=== PATIENT | female | born 1975 | race Asian ===

== ENCOUNTER 2024-04-20 07:00 | Day surgery (SDC) | payer MEDICAID, OTHER ==
[~2024-04-20] VITALS: Ht 160 cm; Wt 60.3 kg
[2024-04-20] MEDS ORDERED: fentaNYL CITRATE/PF 100 MCG/2 ML AMP ONE (07:24)
[2024-04-20] MEDS ORDERED: MIDAZOLAM HCL 5 MG/5 ML VIAL ONE (07:24)
[2024-04-20] MEDS ORDERED: SIMETHICONE 40 MG/0.6 ML ML ONE (07:24)
[2024-04-20 07:46] LABS: HCG,QUAL RESULT NEGATIVE (NEGATIVE)
[2024-04-20 12:51] VITALS: BP_SYST 163; PULSE 72; RESP 16; TEMP 98.2; O2SAT 100
== END 2024-04-20 09:35 | disposition home or self-care (01) ==
LOC: SDS 07:00 → SMU 07:05 → SDS 09:35
PROVIDERS: ATTEND Internal Medicine
DX: R10.13 Epigastric pain (principal); K29.50 Unspecified chronic gastritis without bleeding; K44.9 Diaphragmatic hernia without obstruction or gangrene; K21.9 Gastro-esophageal reflux disease without esophagitis; Z98.890 Other specified postprocedural states; Z79.899 Other long term (current) drug therapy
CPT/HCPCS: 43239; 87081; 84703; 36415; 88305; 88312; 88313; G0378; J2250; J3010